=== PATIENT | female | born 1985 | race Caucasian/White ===

== ENCOUNTER → 2024-01-31 13:21 | Outpatient (REF) | payer OTHER, SELFPAY | LOC: WDC 13:21 | PROVIDERS: ATTENDING PHYSICIAN Obstetrics & Gynecology; FAMILY PHYSICIAN Family Medicine | DX: Z12.31 Encounter for screening mammogram for malignant neoplasm of breast (principal) | CPT/HCPCS: 77063; 77067 ==

== ENCOUNTER → 2024-02-22 10:54 | Outpatient (REF) | payer OTHER, SELFPAY | LOC: WDC 10:54 | PROVIDERS: ATTENDING PHYSICIAN Obstetrics & Gynecology; FAMILY PHYSICIAN Family Medicine | DX: R92.2 Inconclusive mammogram (principal) | CPT/HCPCS: 76641 ==